=== PATIENT | female | born 1960 | race Caucasian/White ===

== ENCOUNTER 2016-11-04 13:35 | Day surgery (SDC) | payer MEDICAID ==
[~2016-11-04] VITALS: Ht 167.6 cm; Wt 68.9 kg
[~2016-11-04 13:35] MED LIST: ADVAIR 10028 PUFF/IN IN; AZITHROMYCIN250 MG PO; COMBIVENT RESPI1 SPR IH; FLONASE 50 MCG16 GM; HYDROCODONE-APA1 TA2 PO; LEVOTHYROXIN0.088 MG PO; MEDROL 4MG. DOSE4 MG PO; MUCINEX1200 MG PO; NEURONTIN100 MG PO; NORCO1 TAB PO; PREDNISONE 20MG20 MG PO; PROTONIX 40MG T40 MG PO; ZITHROMAX Z-PA250 M2 PO
[2016-11-04 13:50] VITALS: BP 122/64
[2016-11-04 14:14] VITALS: BP 112/61; BP 122/64
--- NOTE | 2016-11-04 14:20 | Procedure Note ---
Procedure detail Date of procedure: 11/04/16 Anesthesiologist: Gilbert Rodriguez CRNA Complications: None Pre-procedure diagnosis: LEFT sacroiliitis Post-procedure diagnosis: Same Indications for procedure: This patient's pleasant 56-year-old white female that we've been treating her pain clinic for quite some time for chronic low back pain secondary to degenerative disease lumbar spine multiple levels lumbar radiculopathy symptoms into bilateral legs. Patient has been denied in the past lumbar epidural steroid injections. She has tried behavioral health care coordinator. She's been to physical therapy. She 's been on nonsteroidal anti-inflammatory drugs for quite some time now with some minimal relief. Today her main complaint is LEFT buttock pain that radiates into the LEFT leg. She has extreme point tenderness over the LEFT SI joint. Today we'll proceed with a LEFT SI joint injection. I explained the risks and benefits the patient and she wishes to proceed. Procedure detail: Procedure: Left sacroiliac injection under fluoroscopy Informed consent was obtained and the risk and benefits of the procedure were explained to the patient.~ The patient was taken to the procedure room and noninvasive monitors were placed including noninvasive blood pressure cuff and pulse oximeter.~ The patient was placed prone on the procedure table.~ The~ left hip was cleansed using Betadine as a cleansing solution.~ C-arm fluorosocpy was used to view the left SI joint.~ The skin and subcutaneous tissues were anesthetized using Lidocaine 1.5% and a 25-gauge needle.~ After this, a 22-gauge spinal needle was inserted under fluoroscopic guidance into the inferior aspect of the left SI joint.~ Omnipaque dye was injected and a good spread was seen throughout the joint.~ After this, approximately 5 mL of bupivacaine 0.25% and Depo-Medrol 40 mg was incrementally injected into the sacroiliac joint.~ The patient tolerated the procedure well with no complications.~ The patient was observed in the Pain Clinic for a period of 30-45 minutes, then discharged home neurologically intact.~ Plan and disposition: Patient was reevaluated 10 minutes post procedure. She reports 90 percent improvement terms her LEFT hip pain. at [id number]
[2016-11-04 14:37] VITALS: BP 103/70
== END 2016-11-04 14:42 | disposition home or self-care (01) ==
LOC: PM 13:35
PROC: 3E0U33Z Introduction of Anti-inflammatory into Joints, Percutaneous Approach (ICD-10-PCS; principal; 2016-11-04)
PROC: 3E0U3BZ Introduction of Anesthetic Agent into Joints, Percutaneous Approach (ICD-10-PCS; 2016-11-04)
DX: M46.1 Sacroiliitis, not elsewhere classified (principal)
CPT/HCPCS: G0260; J1040